=== PATIENT | male | born 1985 | race Caucasian/White ===

== ENCOUNTER 2018-07-08 13:58 | Outpatient (CLI) | payer OTHER ==
[~2018-07-08] VITALS: Ht 182.9 cm; Wt 120.2 kg
[2018-07-09] MEDS ORDERED: ACHD5005 PO (11:28)
== END 2018-07-08 15:17 | disposition home or self-care (01) ==
LOC: PREOP 13:58
PROVIDERS: ATTEND Surgery
DX: Z01.818 Encounter for other preprocedural examination (principal)

== ENCOUNTER 2018-07-09 09:38 | Day surgery (SDC) | payer OTHER ==
[~2018-07-09] VITALS: Ht 182.9 cm; Wt 120.2 kg
[2018-07-09 09:45] VITALS: BP 136/88
[2018-07-09] MEDS ORDERED: ceFAZolin 2 GM IV Premixed 50 ML IV ONE (09:45)
[2018-07-09] MEDS ORDERED: FAMOTIDINE 20MG/2ML IV (PEPCID) IV ONE (10:00)
[2018-07-09] MEDS ORDERED: ONDANSETRON 4 MG/2 ML (SDV) Z0FRAN IV ONE (10:00)
[2018-07-09] MEDS: LACTATED RINGERS 1,000 ML IV PRN ×2 (10:00→11:27)
--- OUTSIDE RECORDS SUMMARY | 2018-07-09 10:02 | XMS REPORT | Continuity of Care Document ---
Author Author [facility] Address Unknown Phone Unavailable Allergies There is no data. Medications There is no data. Problems Date Dx Coded Attending Type Code Diagnosis Diagnosed By 11/15/2013 BELLO APONTE APRN N 380.10 INFECTIVE OTITIS EXTERNA UNSPECIFIED 11/15/2013 BELLO APONTE APRN N 461.8 OTHER ACUTE SINUSITIS 11/15/2013 BELLO APONTE APRN N 478.19 OTHER DISEASES OF NASAL CAVITY AND SINUSES Procedures There is no data. Results There is no data. Encounters ACCT No. Visit Date/Time Discharge Status Pt. Type Provider Facility Loc./Unit Complaint [id number] 11/15/2013 08:31:00 11/15/2013 23:59:59 CLS Outpatient BELLO APONTE APRN N
--- NOTE | 2018-07-09 10:06 | Progress Note-Pre Operative ---
Pre-Operative Progress Note H&P Reviewed The H&P was reviewed, patient examined and no changes noted. Date Seen by Provider: Jul 08, 2018 Time Seen by Provider: 11:45 Date H&P Reviewed: Jul 09, 2018 Time H&P Reviewed: 10:06 Pre-Operative Diagnosis: Perianal abscess with possible fistula RAFA MOORE MD Jul 09, 2018 10:06
[2018-07-09] MEDS ORDERED: MIDAZOLAM 2 MG/2 ML (VERSED) VIAL ONE (10:13)
[2018-07-09] MEDS ORDERED: ONDANSETRON 4 MG/2 ML (SDV) Z0FRAN ONE ×2 (10:13→10:19)
[2018-07-09] MEDS ORDERED: DEXAMETHASONE 10 MG/ML (DECADRON) 1 ML VIAL ONE (10:13)
[2018-07-09] MEDS ORDERED: proPOfol 200 MG/20 ML (DIPRIVAN) VIAL IV ONE ×2 (10:13→11:22)
[2018-07-09] MEDS ORDERED: SEVOFLURANE (ULTANE) 15 ML INHAL SOLN ONE (10:13)
[2018-07-09] MEDS ORDERED: LIDOCAINE PF 2% 5 ML (XYLOCAINE) VIAL ONE (10:13)
[2018-07-09] MEDS ORDERED: fentaNYL INJECTION 250 MCG/5 ML AMP ONE (10:13)
[2018-07-09] MEDS ORDERED: FAMOTIDINE 20MG/2ML IV (PEPCID) ONE (10:19)
[2018-07-09] MEDS ORDERED: BUP/EPI 0.5% 1:200,000 (SENSORCAINE) 30 ML VIAL ONE (10:30)
[2018-07-09] MEDS ORDERED: ACHD5005 PO (11:28)
--- NOTE | 2018-07-09 11:28 | Operative Report ---
Operative Report Date of Procedure/Surgery Jul 09, 2018 Surgeon (s) RAFA MOORE MD Music Pastor (s): Derek Goodwin ( Med Student III) Post-Operative Diagnosis Deep perirectal abscess Procedure Performed Exam under anesthetic Incision and drainage of perirectal abscess Description of Procedure Anesthesia Type: General Estimated blood loss (mL): Minimal Specimen(s) collected/removed None Description of the Procedure Indication for the procedure: This gentleman presented with a painful swelling along the posterior aspect of the perianal region with a history of previous episodes, suggestive of fistula. He was offered and examined anesthetic with a view to establishing definitive diagnosis and address the pathology. The potential for finding a high anal fistula and placing a Seton suture was highlighted. In addition, the natural history of recurrence associated with perianal abscess and fistula was also discussed with him. Description of the procedure: He underwent mechanical bowel preparation the day before surgery. He was initially placed supine on the operative table and general anesthesia induced. Subsequently, he was placed in combined lithotomy position, his legs being supported on stirrups. 2 g of Ancef and 5 mg of Flagyl were administered intravenously as prophylaxis. Exam under anesthetic: Multiple skin tags and some external hemorrhoids were encountered. 2 mm opening was found that the posterior anal margin and hydrogen peroxide injected into this, a speculum being placed within the rectum. I did not encounter any deep opening within the rectum. Subsequently, a lacrimal probe was gently passed and no internal opening could be identified. Therefore, a diagnosis of deep perirectal abscess was made. Incision and drainage of perirectal abscess, The incision was extended to about a centimeter in length without endangering the sphincter mechanism. A deep posterior perirectal abscess was encountered and drained appropriately. The cavity was irrigated with saline and then an 0.5 inch Dane drain left in the abscess cavity, being secured with 2-0 silk sutures. A dressing was then applied. He tolerated the procedure well, was turned supine on the operative table and extubated, before being taken to the recovery room in a stable condition Findings of the Procedure See operative report Allergies and Home Medications Allergies Coded Allergies: No Known Drug Allergies (Unverified , 07/08/18) Home Medications No Active Prescriptions or Reported Meds Patient Home Medication List Home Medication List Reviewed: Yes RAFA MOORE MD Jul 09, 2018 11:28
--- NOTE | 2018-07-09 11:29 | Discharge Inst-Simple/Standard ---
Discharge Inst-Standard Discharge Medications New, Converted or Re-Newed RX: RX on Chart Patient Instructions/Follow Up Plan of Care/Instructions/FU: Maxi-pad as needed. Stool softeners. Follow-up in a week Activity as Tolerated: Yes Discharge Diet: No Restrictions RAFA MOORE MD Jul 09, 2018 11:29
[2018-07-09] MEDS ORDERED: morphine INJ 10 MG/ML 1ML (SYR OR VIAL) IVP ONE (11:45)
[2018-07-09] MEDS ORDERED: HYDROmorphone 2 MG/ML VIAL (DILAUDID) IV ONE (11:45)
[2018-07-09] MEDS ORDERED: ONDANSETRON 4 MG/2 ML (SDV) Z0FRAN IVP PRN (11:45)
[2018-07-09 12:27] VITALS: BP 112/74
[2018-07-09] MEDS ORDERED: HYDROcodone/APAP 5 MG/325 MG (LORTAB) TAB PO ONE ×2 (13:15→13:30)
[2018-07-09] MEDS ORDERED: HYDROcodone/APAP 5 MG/325 MG (LORTAB) TAB ONE (13:25)
[2018-07-09 13:45] VITALS: BP 119/65
[2018-07-09 13:57] VITALS: BP 118/77
== END 2018-07-09 13:45 | disposition home or self-care (01) ==
LOC: SDC 09:38
PROVIDERS: ATTEND Surgery
DX: K61.1 Rectal abscess (principal); Z87.891 Personal history of nicotine dependence
CPT/HCPCS: 87081

== ENCOUNTER 2021-03-31 16:17 | Emergency (ER) | payer OTHER ==
[~2021-03-31] VITALS: Ht 177 cm; Wt 123.0 kg
[~2021-03-31 16:17] MED LIST: ACHD5005 PO
[2021-03-31] MEDS ORDERED: cloNIDine 0.1 MG (CATAPRES) TAB PO STA (16:34)
--- NOTE | 2021-03-31 16:40 | ED General ---
General Chief Complaint: Eye Problems Stated Complaint: BLURRED VISION | DIZZINESS Nursing Triage Note: PT WAS GETTING GAS AND HIS VISION WENT A LITTLE BLURRY, HE THEN WENT TO WASH HIS CAR AND HIS VISION SEEMED TO BE GETTING BUT HIS PERIPHEREAL VISION ON THE LEFT SIDE IS STILL NOT FULLY BACK TO NORMAL. HE WENT TO URGENT CARE AND THEY SENT HIM TO ER. History of Present Illness Date Seen by Provider: Mar 31, 2021 Time Seen by Provider: 16:19 Initial Comments 36-year-old male presenting with complaints of blurred vision. He states this came on about 45 minutes prior to arrival. He was pumping gas when this happened. He states it has improved since it initially started. He denies any headache or pain anywhere. He does have a history of high blood pressure and has not been taking any medicine for that. He states that he did stop going to the clinic and refilling the lisinopril. He denies any nausea, vomiting, cough, shortness of breath, abdominal pain, diarrhea, pain with urination. he has no weakness in his arms or legs and no numbness or tingling. He states he last ate around 11 am Timing/Duration: 1 Hour Associated Systoms: No Chest Pain, No Cough, No Diaphoresis, No Fever/Chills, No Headaches, No Loss of Appetite, No Malaise, No Nausea/Vomiting, No Rash, No Seizure, No Shortness of Air, No Syncope, No Weakness Allergies and Home Medications Allergies Coded Allergies: No Known Drug Allergies (Unverified , 07/08/18) Home Medications Hydrocodone Bit/Acetaminophen 1 Tab Tab, 1-2 TAB PO Q6H PRN for PAIN-MODERATE Prescribed by: RAFA MOORE on 07/09/18 1128 Lisinopril 10 Mg Tablet, 10 MG PO DAILY Prescribed by: BHARATH TANNER on 03/31/21 1657 Patient Home Medication List Home Medication List Reviewed: Yes Review of Systems Review of Systems Constitutional: No chills, No fever EENTM: see HPI Respiratory: no symptoms reported Cardiovascular: no symptoms reported Gastrointestinal: no symptoms reported Genitourinary: no symptoms reported Musculoskeletal: no symptoms reported Skin: no symptoms reported Psychiatric/Neurological: See HPI Hematologic/Lymphatic: No Symptoms Reported Past Xtvuney-Svubkb-Ytfvsw Hx Patient Social History Tobacco Use?: No Use of E-Cig and/or Vaping dev: No Substance use?: No Alcohol Use?: No Pt feels they are or have been: No Seasonal Allergies Seasonal Allergies: Yes Past Medical History Cardiac: Yes Hypertension Reproductive Disorders: No Sexually Transmitted Disease: No HIV/AIDS: No Gastroesophageal Reflux, Hemorrhoids Loss of Vision: Denies Hearing Impairment: Denies Adverse Reaction/Blood Tranf: No (N/A) Physical Exam Vital Signs Vital Signs - First Documented 03/31/21 16:19 Temp 36.8 Pulse 85 Resp 20 B/P (MAP) 164/106 (125) Pulse Ox 99 O2 Delivery Room Air Capillary Refill : Less Than 3 Seconds Height, Weight, BMI Height: 6'0.00" Weight: 265lbs. 0.0oz. 120.102156ri; 39.00 BMI Method: General Appearance: No Apparent Distress, WD/WN HEENT: PERRL/EOMI, Pharynx Normal Neck: Full Range of Motion, Normal Inspection, Non Tender, Supple Respiratory: Chest Non Tender, Lungs Clear, Normal Breath Sounds, No Accessory Muscle Use, No Respiratory Distress Cardiovascular: Regular Rate, Rhythm, Normal Peripheral Pulses Gastrointestinal: No Pulsatile Mass, Non Tender, Soft Rectal: Deferred Extremity: Normal Capillary Refill, Normal Inspection, No Pedal Edema Neurologic/Psychiatric: Alert, Oriented x3, No Motor/Sensory Deficits, fat pressroom worker II- XII Norm as Tested Skin: Warm/Dry Progress/Results/Core Measures Suspected Sepsis SIRS Temperature: Pulse: 85 Respiratory Rate: 20 Blood Pressure 164 /106 Mean: 125 Results/Orders Lab Results Laboratory Tests Test 03/31/21 16:35 Range/Units Glucometer 78 70-110 MG/DL My Orders Orders - BHARATH TANNER MD Accucheck Stat ONCE (03/31/21 16:33) Ct Head Wo (03/31/21 16:33) Clonidine Tablet (Catapres Tablet) (03/31/21 16:34) Vital Signs/I&O 03/31/21 03/31/21 16:19 17:00 Temp 36.8 36.8 Pulse 85 82 Resp 20 16 B/P (MAP) 164/106 (125) 146/100 Pulse Ox 99 99 O2 Delivery Room Air Capillary Refill : Less Than 3 Seconds Blood Pressure Mean: 125 Progress Note #1: Progress Note His blood pressure is high so we will give a dose of clonidine. Since he reports that he has some decrease in his peripheral vision still although the visual julien are was symmetrical obtain a CT scan of his head to evaluate for any sort of intracranial process or stroke. His last meal was almost 6 hours ago so we will obtain an Accu-Chek to ensure that he is not hypoglycemic. Progress Note #2: Progress Note Glucose of 78 so borderline low. His blood pressure was responding to the medication. His CT head did not demonstrate any acute intracranial process. He continued to improve in terms of his symptoms and he was feeling. Discharged on lisinopril 10 mg a day as he had been prescribed previously. Counseled on follow-up and return precautions. Diagnostic Imaging Diagonstic Imaging: CT Plain Films/CT/US/NM/MRI: head Comments NAME: MONA CASTANEDA MED REC#: [id number] PT STATUS: REG ER : 1985 PHYSICIAN: BHARATH TANNER MD ADMIT DATE: 03/31/21/ER FS Draft Date of Exam:03/31/21 CT HEAD WO EXAMINATION: CT head without contrast. TECHNIQUE: Multiple contiguous axial images were obtained through the brain without the use of intravenous contrast. All CT scans use one or more of the following dose optimizing techniques: automated exposure control, MA and/or KvP adjustment based on patient size and exam type or iterative reconstruction. HISTORY: Blurry vision. Dizziness. Symptoms have resolved. COMPARISON: None available. FINDINGS: No large acute territorial ischemia, mass, or hemorrhage. No midline shift or mass effect. The ventricles, cortical sulci and basilar cisterns are patent and unremarkable. The orbits are normal. Paranasal sinuses are normal. Mastoid air cells are clear. No soft tissue abnormality is seen. No osseus lesions or fractures are seen. IMPRESSION: No large acute territorial ischemia, mass or hemorrhage. Dictated on workstation # [id number] Dict: 03/31/21 1642 Trans: 03/31/21 1644 MERGED WITH [facility] [id number] Interpreted by: MARY GUTIERREZ DO Electronically signed by: Departure Impression Primary Impression: Hypertension Qualified Codes: I10 - Essential (primary) hypertension Additional Impression: Blurred vision, bilateral Disposition: 01 HOME, SELF-CARE Condition: Stable Departure-Patient Inst. Decision time for Depature: 16:57 Referrals: NO,LOCAL PHYSICIAN (PCP) Primary Care Physician [facility] Patient Instructions: High Blood Pressure ED, DASH Diet, Heart Healthy Diet Add. Discharge Instructions: Take lisinopril to help control blood pressure. Follow-up with clinic establish care to continue on blood pressure medication. Call [phone] to make an appointment. Try to make sure you are eating meals at regular times and follow a balanced diet. Stay well hydrated and get plenty of rest. Follow up sooner or return or seek medical care if having more issues or vision worsens. All discharge instructions reviewed with patient and/or family. Voiced understanding. Scripts Lisinopril (Lisinopril) 10 Mg Tablet 10 MG PO DAILY for Blood Pressure for 30 Days, #30 TAB 0 Refills Prov: BHARATH TANNER MD 03/31/21 BHARATH TANNER MD Mar 31, 2021 16:40
--- NOTE | 2021-03-31 16:45 | Diagnostic Imaging Report ---
EXAMINATION: CT head without contrast. TECHNIQUE: Multiple contiguous axial images were obtained through the brain without the use of intravenous contrast. All CT scans use one or more of the following dose optimizing techniques: automated exposure control, MA and/or KvP adjustment based on patient size and exam type or iterative reconstruction. HISTORY: Blurry vision. Dizziness. Symptoms have resolved. COMPARISON: None available. FINDINGS: No large acute territorial ischemia, mass, or hemorrhage. No midline shift or mass effect. The ventricles, cortical sulci and basilar cisterns are patent and unremarkable. The orbits are normal. Paranasal sinuses are normal. Mastoid air cells are clear. No soft tissue abnormality is seen. No osseus lesions or fractures are seen. IMPRESSION: No large acute territorial ischemia, mass or hemorrhage. Dictated by: Dictated on workstation # [id number]
[2021-03-31] MEDS ORDERED: LISI10TA25 PO (16:57)
[2021-03-31 17:00] VITALS: BP 146/100
== END 2021-03-31 17:05 | disposition home or self-care (01) ==
LOC: EDUNIT# 16:17 → ER FS 16:20
DX: I10 Essential (primary) hypertension (principal); H53.8 Other visual disturbances
CPT/HCPCS: 70450; 82947